=== PATIENT | male | born 1955 | race Caucasian/White ===

== ENCOUNTER 2019-12-06 18:01 | Inpatient (IN) | payer MEDICARE ==
[~2019-12-06] VITALS: Ht 162.6 cm; Wt 50.5 kg
[~2019-12-06 18:01] MED LIST: CALC-190 PO; PHEN100C23 PO
[2019-12-06 18:36] LABS: BASOPHILS % (AUTO) 0.3 % (0.0-5.0); EOSINOPHILS % (AUTO) 5.4 % (0.0-8.0); HEMATOCRIT 42.3 % (42-54); LYMPHOCYTES % (AUTO) 32.3 % (21.0-51.0); MEAN CORPUSCULAR HEMOGLOBIN 32.8 pg (27.0-33.0); MEAN CORPUSCULAR HGB CONC 34.3 g/dL (32.0-36.0); MEAN CORPUSCULAR VOLUME 95.7 fL (79-99); MONOCYTES % (AUTO) 11.2 % (3.0-13.0); NEUTROPHILS % (AUTO) 50.5 % (40.0-77.0); PLATELET COUNT (AUTO) 165 K/uL (130-400); RED BLOOD CELL COUNT(AUTO) 4.42 MIL/uL (4.50-6.20); RED CELL DISTRIBUTION WIDTH 12.9 % (11.0-15.5); WHITE BLOOD COUNT (AUTO) 3.1 K/uL (4.8-10.8)
[2019-12-06 18:48] LABS: CREATININE 0.9 mg/dL (0.5-1.5); POTASSIUM 4.8 mmol/L (3.5-5.1)
[2019-12-06 18:52] LABS: BILIRUBIN,TOTAL 0.2 mg/dL (0.2-1.0); TOTAL PROTEIN, SERUM 7.3 g/dL (6.0-8.3)
[2019-12-07] MEDS: SODIUM CHLORIDE 0.9% 1000ML 1,000 ML IV SCH ×2 (00:17→10:17)
[2019-12-07] MEDS ORDERED: NITROGLYCERIN 0.4 MG SL TAB SL PRN (00:30)
[2019-12-07] MEDS ORDERED: SODIUM CHLORIDE 0.9% 500ML 500 ML IV ONE ×2 (00:30→02:16)
[2019-12-07] MEDS ORDERED: ONDANSETRON HCL 4 MG/2 ML VIAL IV PRN (00:30)
[2019-12-07] MEDS ORDERED: ACETAMINOPHEN 325 MG TAB PO PRN ×2 (00:30)
[2019-12-07] MEDS ORDERED: DIPHENHYDRAMINE HCL 25 MG CAPSULE PO PRN (00:30)
[2019-12-07] MEDS ORDERED: SODIUM CHLORIDE 0.9% 500ML 500 ML IV SCH (01:30)
[2019-12-07] MEDS ORDERED: AMPICILLIN SODIUM/SULBACTAM NA 1.5GM VIAL ONE ×3 (02:10→19:18)
[2019-12-07 03:57] LABS: CREATINE KINASE, TOTAL 238 U/L (21-232); LACTATE DEHYDROGENASE 314 U/L (81-234); MYOGLOBIN 103 ng/mL (10-92); TRIGLYCERIDES 27 mg/dL (30-200); TROPONIN I < 0.04 ng/mL (0.00-0.06)
[2019-12-07 08:09] LABS: HEMATOCRIT 46.1 % (42-54); MEAN CORPUSCULAR HEMOGLOBIN 33.2 pg (27.0-33.0); MEAN CORPUSCULAR HGB CONC 34.5 g/dL (32.0-36.0); MEAN CORPUSCULAR VOLUME 96.2 fL (79-99); PLATELET COUNT (AUTO) 142 K/uL (130-400); RED BLOOD CELL COUNT(AUTO) 4.79 MIL/uL (4.50-6.20); RED CELL DISTRIBUTION WIDTH 12.9 % (11.0-15.5); WHITE BLOOD COUNT (AUTO) 1.9 K/uL (4.8-10.8)
[2019-12-07] MEDS: UNASYN 1.5GM+NS 100ML 100 ML IV SCH ×2 (08:15→14:15)
[2019-12-07 08:35] LABS: ALANINE AMINOTRANSFERASE 32 U/L (12-78); ALBUMIN 3.6 g/dL (3.5-5.0); ASPARTATE AMINOTRANSFERASE 24 U/L (10-37); BILIRUBIN,TOTAL 0.5 mg/dL (0.2-1.0); CARBON DIOXIDE 31 mmol/L (21-32); CHLORIDE 96 mmol/L (101-111); CREATINE KINASE, TOTAL 177 U/L (21-232); CREATININE 0.8 mg/dL (0.5-1.5); GLOMERULAR FILTR. RATE CALC 103 mL/min (>60); GLUCOSE,RANDOM 122 mg/dL (70-105); MYOGLOBIN 90 ng/mL (10-92); POTASSIUM 4.9 mmol/L (3.5-5.1); SODIUM SERUM 131 mmol/L (136-145); TOTAL PROTEIN, SERUM 6.9 g/dL (6.0-8.3); TROPONIN I < 0.04 ng/mL (0.00-0.06); UREA NITROGEN, BLOOD 20 mg/dL (7-18)
[2019-12-07] MEDS: FAMOTIDINE/PF 20 MG/2 ML VIAL IV SCH (09:00)
[2019-12-07] MEDS: ENOXAPARIN SODIUM 30 MG/0.3 ML SQ SCH (09:00)
[2019-12-07 09:04] LABS: BAND NEUTROPHILS % (MANUAL) 32 % (0-2); LYMPHOCYTES % (MANUAL) 4 % (22-44); MONOCYTES % (MANUAL) 8 % (2-9); REACTIVE LYMPHOCYTES 8 % (0-0); SEGMENTED NEUTROPHILS % 48 % (40-70)
[2019-12-07 09:05] LABS: PLATELET MORPHOLOGY COMMENT ADEQUATE
[2019-12-07] MEDS ORDERED: SODIUM CHLORIDE 0.9% 50 ML IV ONE (09:45)
[2019-12-07] MEDS ORDERED: FAMOTIDINE/PF 20 MG/2 ML VIAL IV ONE ×2 (11:23→22:20)
--- NOTE | 2019-12-07 14:00 | NUR ---
DYSPHAGIA EVAL COMPLETED. NPO PENDING MBSS TO RULE OUT SILENT ASPIRATION. Pt PRESENTS WITH MILD OROPHARYNGEAL DYSPHAGIA. NO OVERT S/S OF ASPIRATION OF COUGH OR THROAT CLEARS WERE PRESENT AT BEDSIDE WITH THIN LIQUIDS VIA SPOON. Addendum: 12/07/[address] [facility] Amended: Links added.
--- NOTE | 2019-12-07 14:10 | NUR ---
medications document not given due to charted in er bere [facility]ied[facility]
[2019-12-07] MEDS ORDERED: SODIUM CHLORIDE 0.9% 1000ML 1,000 ML IV ONE (14:32)
--- NOTE | 2019-12-07 17:52 | NUR ---
INITIAL SW unable to reach emergency contact noted on demographic sheet - Dennise Castro, . As per medical record, patient lives in a skilled nursing - [facility] in [place]. PCP is Dr. Monico Saha. DCP is back to skilled nursing. Addendum: 12/07/19 at 1755 by ROCKY RUIZ SS Amended: Links added.
[2019-12-07] MEDS ORDERED: PHENYTOIN SODIUM 50MG/ML 2ML 0 MG in SODIUM CHLORIDE 0.9% 50 ML IV SCH (18:45)
[2019-12-07] MEDS ORDERED: PHENYTOIN SODIUM 50 MG/ML 2ML VIAL IV ONE (22:20)
[2019-12-08] MEDS ORDERED: SODIUM CHLORIDE 0.9% 50 ML IV ONE (05:04)
[2019-12-08] MEDS ORDERED: AMPICILLIN SODIUM/SULBACTAM NA 1.5GM VIAL ONE ×2 (05:04→19:47)
[2019-12-08] MEDS ORDERED: ENOXAPARIN SODIUM 30 MG/0.3 ML SQ ONE (09:50)
[2019-12-08] MEDS ORDERED: FAMOTIDINE/PF 20 MG/2 ML VIAL IV ONE ×2 (09:50→21:18)
[2019-12-08 14:05] LABS: HEMATOCRIT 44.9 % (42-54); MEAN CORPUSCULAR HGB CONC 34.1 g/dL (32.0-36.0); PLATELET COUNT (AUTO) 148 K/uL (130-400); RED BLOOD CELL COUNT(AUTO) 4.63 MIL/uL (4.50-6.20); RED CELL DISTRIBUTION WIDTH 13.7 % (11.0-15.5); WHITE BLOOD COUNT (AUTO) 6.3 K/uL (4.8-10.8)
[2019-12-08 14:09] LABS: CREATININE 0.9 mg/dL (0.5-1.5)
[2019-12-08 14:49] LABS: BAND NEUTROPHILS % (MANUAL) 3 % (0-2); LYMPHOCYTES % (MANUAL) 5 % (22-44); MONOCYTES % (MANUAL) 12 % (2-9); MYELOCYTES % 3 % (0-0); SEGMENTED NEUTROPHILS % 77 % (40-70)
[2019-12-08 14:50] LABS: MAN.DIFF COMMENT-IMPRESSION MANUAL DIFFERENTIAL
[2019-12-08] MEDS ORDERED: SODIUM CHLORIDE 0.9% 100 ML IV ONE (19:48)
[2019-12-09] MEDS ORDERED: AMPICILLIN SODIUM/SULBACTAM NA 1.5GM VIAL ONE ×3 (04:09→14:37)
[2019-12-09] MEDS ORDERED: SODIUM CHLORIDE 0.9% 100 ML IV ONE (04:10)
[2019-12-09 05:34] LABS: BASOPHILS % (AUTO) 0.3 % (0.0-5.0); EOSINOPHILS % (AUTO) 0.3 % (0.0-8.0); HEMATOCRIT 43.5 % (42-54); LYMPHOCYTES % (AUTO) 8.1 % (21.0-51.0); MEAN CORPUSCULAR HEMOGLOBIN 32.7 pg (27.0-33.0); MEAN CORPUSCULAR HGB CONC 33.8 g/dL (32.0-36.0); MEAN CORPUSCULAR VOLUME 96.7 fL (79-99); NEUTROPHILS % (AUTO) 84.7 % (40.0-77.0); PLATELET COUNT (AUTO) 144 K/uL (130-400); RED CELL DISTRIBUTION WIDTH 13.4 % (11.0-15.5); WHITE BLOOD COUNT (AUTO) 6.2 K/uL (4.8-10.8)
[2019-12-09 05:42] LABS: CREATININE 0.7 mg/dL (0.5-1.5); POTASSIUM 4.3 mmol/L (3.5-5.1)
[2019-12-09 05:45] LABS: PHENYTOIN (DILANTIN) 20.8 mcg/mL (10.0-20.0)
[2019-12-09] MEDS: UNASYN 1.5GM+NS 100ML 100 ML IV SCH ×3 (08:15→22:20)
[2019-12-09] MEDS: ENOXAPARIN SODIUM 30 MG/0.3 ML SQ SCH (09:00)
[2019-12-09] MEDS: FAMOTIDINE/PF 20 MG/2 ML VIAL IV SCH ×2 (09:00→22:23)
[2019-12-09] MEDS ORDERED: SODIUM CHLORIDE 0.9% 50 ML IV ONE ×2 (09:44→14:38)
[2019-12-09] MEDS ORDERED: ENOXAPARIN SODIUM 30 MG/0.3 ML SQ ONE (09:48)
[2019-12-09] MEDS ORDERED: FAMOTIDINE/PF 20 MG/2 ML VIAL IV ONE (09:49)
[2019-12-09] MEDS: PHENYTOIN SODIUM 50 MG/ML 2ML VIAL IV SCH ×2 (12:00→20:00)
[2019-12-09] MEDS: SODIUM CHLORIDE 0.9% 1000ML 1,000 ML IV SCH ×2 (12:32→22:17)
--- NOTE | 2019-12-09 13:41 | NUR ---
CALL TO [facility]- SPOKE TO GETACHEW PET GROOMER, ADVISED HER PATIENT MAY NEED SNF PLACEMENT ON DISCHARGE ON THIS ADMISSION - ASPIRATION PNEUMONIA - POSS NEED FOR ABX GET[facility]W STATES THAT SELENA LIANG WOULD CALL BACK. [facility] PHONE NUMBER UPDATED ON FACE SHEET, FAXED TEXT TO MD GRACE RE PLACEMENT
--- NOTE | 2019-12-09 14:59 | NUR ---
MBSS COMPLETED. +S/S OF ASPIRATION WITH THIN, HONEY AND MIXED TEXTURES. RECOMMEND PUREED, PUDDING-THICK LIQUIDS; PILLS CRUSHED. ASSISTANT FITNESS MANAGER COORDINATED CARE WITH NURSE Ariel GARCIA WITH ID. ASSISTANT FITNESS MANAGER WILL CONTINUE TO FOLLOW Pt. Addendum: 12/09/19 at 1501 by ROSE MARY MOREIRA, [facility] [address] Amended: Links added.
--- NOTE | 2019-12-09 15:01 | NUR ---
REC'D CALL FROM SELENA AT [facility] THAT THEY WOULD LIKE DR. Lawrence TO SEE PATIENT WHILE HERE. OBTAINED ORDER FROM BRENT CHAN AND ENTERED. WILL AWAIT RECOMMENDATIONS. WILL FILE PEDRO FOR RETAMA
--- NOTE | 2019-12-09 16:15 | NUR ---
DISCHARGE PLANNING CHART REVIEW FOR PREVIOUS FUNCTION, PENDING CALL BACK TO [facility]- [facility]NA OR [facility] FOR MORE INFORMATION. PATIENT LIVES AT PRISON[facility]EDUCARE. THIS CHARTS MD NOTES STATE NOT VERY VERBAL, BUT APPEARS TO BE ABLE TO RESPOND TO YES AND NO QUESTIONS, PENDING ASSESSMENT BY DR. Lawrence FOR POSS IV ABX, FOR LARGE ASPIRATION PNEUMONIA ON ADMISSION IF NEEDS IV, POSSIBLE REFERRAL TO SNF, IF NOT, SPEECH THERAPY CAN POSSIBLY BE ARRANGED THROUGH PRISON / HOME HEALTH. CM TO FOLLOW FOR MD RECOMMENDATIONS. PENDING COVID RESULTS. PATIENT IN ER, CM UNABLE TO INTERVIEW.
[2019-12-09] MEDS ORDERED: SODIUM CHLORIDE 0.9% 1000ML 1,000 ML IV ONE (18:05)
[2019-12-09 20:20] VITALS: BP 146/76
--- NOTE | 2019-12-09 22:39 | NUR ---
Had paged Clinton CHAN, via answering service, answered back within a few minutes. Informed her of patient's Dilantin level this morning at 20.8 elevated, noticed that the dose for 12 noon was not administered. Sangeeta CHAN asked if the dose had not been adjusted informed her no. Orders received to hold the dose for tonight and in the morning. Informed her patient very irritable, and aggressive with staff, when ever something has to be done for him, like changing. Orders received to just keep an eye on him, if he is not trying to get out of bed. No new orders, if he does try to get out of bed to place on a one to one sitter. Clinton Browning called back again within a few seconds and stated only to hold the Dilantin dose for tonight, lab of Dilantin ordered for the morning, as soon as results out we would see if dose would be administered.
[2019-12-09 23:43] VITALS: BP 95/59
[2019-12-10 03:15] VITALS: BP 118/68
[2019-12-10] MEDS: UNASYN 1.5GM+NS 100ML 100 ML IV SCH (03:59)
[2019-12-10 05:37] LABS: BASOPHILS % (AUTO) 0.3 % (0.0-5.0); EOSINOPHILS % (AUTO) 1.7 % (0.0-8.0); HEMATOCRIT 40.5 % (42-54); LYMPHOCYTES % (AUTO) 8.7 % (21.0-51.0); MEAN CORPUSCULAR HEMOGLOBIN 33.3 pg (27.0-33.0); MEAN CORPUSCULAR HGB CONC 34.6 g/dL (32.0-36.0); MEAN CORPUSCULAR VOLUME 96.4 fL (79-99); MONOCYTES % (AUTO) 8.5 % (3.0-13.0); NEUTROPHILS % (AUTO) 80.3 % (40.0-77.0); PLATELET COUNT (AUTO) 150 K/uL (130-400); RED CELL DISTRIBUTION WIDTH 13.2 % (11.0-15.5); WHITE BLOOD COUNT (AUTO) 6.4 K/uL (4.8-10.8)
[2019-12-10 06:11] LABS: ALBUMIN 2.7 g/dL (3.5-5.0); BILIRUBIN,TOTAL 0.4 mg/dL (0.2-1.0); CREATININE 0.8 mg/dL (0.5-1.5); POTASSIUM 4.9 mmol/L (3.5-5.1); TOTAL PROTEIN, SERUM 6.3 g/dL (6.0-8.3)
[2019-12-10] MEDS: PHENYTOIN SODIUM 50 MG/ML 2ML VIAL IV SCH (06:20)
[2019-12-10 08:00] VITALS: BP 161/71
[2019-12-10] MEDS ORDERED: LEVOFLOXACIN 250 MG/D5W 50ML 50 ML IV SCH (09:00)
[2019-12-10] MEDS: ENOXAPARIN SODIUM 30 MG/0.3 ML SQ SCH (09:30)
[2019-12-10] MEDS: FAMOTIDINE/PF 20 MG/2 ML VIAL IV SCH (09:31)
[2019-12-10 11:35] VITALS: BP 127/64
[2019-12-10] MEDS ORDERED: LEVO500T89 PO (13:24)
--- NOTE | 2019-12-10 13:29 | NUR ---
FOLLOW UP COMPLETED. Pt IN BED AT THE TIME OF THE VISIT. Pt WITH INTELLECTUAL DISABILITY, COMPREHENSION VARIES. MATERIAL DAMAGE ADJUSTER ATTEMPTED TRIALS OF PUDDING-THICK LIQUIDS, REFUSED AT THIS TIME. STUDENT COUNSELLOR REPORTS Pt ATE ALL HIS BREAKFAST. BREAKFAST WAS AT LEVEL OF PUREED, PUDDING-THICK LIQUIDS WITH NO OVERT S/S OF ASPIRATION. MATERIAL DAMAGE ADJUSTER DEMONSTRATED HOW TO REACH PUDDING-THICK LIQUIDS. MATERIAL DAMAGE ADJUSTER COORDINATED CARE WITH NURSE CATIE. RECOMMEND CONTINUED PUREED, PUDDING-THICK LIQUIDS; PILLS CRUSHED WITH APPLESAUCE. MATERIAL DAMAGE ADJUSTER WILL CONTINUE TO FOLLOW Pt. Addendum: 12/10/19 at 1338 by ROSE MARY MOREIRA [facility] Amended: Links added.
[2019-12-10] MEDS ORDERED: PHENYTOIN SODIUM 100 MG ERCAP PO SCH (14:00)
--- NOTE | 2019-12-10 14:07 | NUR ---
CM NOTE/DCP HH PER BRENT GEOSPATIAL ANALYST, PATIENT TO RETURN TO [facility] WITH PO ANTIBIOTICS AND HH WITH SPEECH THERAPY. SELENA AT [facility] MADE AWARE, CLINICAL PACKET FAXED AND RECEIVED. SELENA WILL FOLLOW UP WITH DR. JEFFREY SWEENEY FOR HH WITH ST REFERRAL. PRIMARY NURSE, CATIE LIANG, MADE AWARE TO CALL REPORT TO [facility] AND CUT OFF TIME FOR BRIM STIFFENER IS 4:30PM.
--- NOTE | 2019-12-10 14:39 | NUR ---
RD NOTIFICATION Pt admitted for possible aspiration. Pt evaluated by Judson MANCIA, Pudding Thick liquids recommended. Pt tolerating diet order. Pt with low BMI for age. LBM 12/09/19. Recommend continue recommended diet order Recommend Pudding with lunch and dinner RD to continue to monitor. Please notify as additional nutrition concerns arise. Thank you. Addendum: 12/10/19 at [address] Amended: Links added.
--- NOTE | 2019-12-10 16:15 | NUR ---
DISCHARGE PATIENT GIVEN DISCHARGE INSTRUCTIONS VIA TEACH BACK. 20G PIV TO RA DISCONTINUED, TIP INTACT. TELE REMOVED AND RETURNED TO TELEMETRY. PATIENT TO FOLLOW UP WITH DR. HAN FOR HOME HEALTH AND SPEECH THERAPY. E-RX SENT FOR LEVOFLOXACIN 500MG 1 TAB PO QD X 7 DAYS. CONTINUE HOME MEDICATIONS. REPORT GIVEN TO SELENA BRADFORD RN AT [facility]. TRANSPORT AWAITING FOR PATIENT TO BE WHEELED TO [facility] FOR DISCHARGE BY MARK KAMINSKI. PATIENT STABLE AT THIS TIME.
[2019-12-11] MEDS ORDERED: LEVOFLOXACIN 500 MG TABLET PO SCH (09:00)
== END 2019-12-10 16:15 | disposition home or self-care (01) | DRG 178 ==
LOC: EDH 18:01 → EDHIP 23:50 → 3DH 12-09 20:49
PROVIDERS: ADMIT Internal Medicine; ATTEND Internal Medicine
DX: J69.0 Pneumonitis due to inhalation of food and vomit (principal); E87.1 Hypo-osmolality and hyponatremia; T17.928A Food in respiratory tract, part unspecified causing other injury, initial encounter; G40.909 Epilepsy, unspecified, not intractable, without status epilepticus; B96.1 Klebsiella pneumoniae [K. pneumoniae] as the cause of diseases classified elsewhere; F79 Unspecified intellectual disabilities; R13.12 Dysphagia, oropharyngeal phase; K21.9 Gastro-esophageal reflux disease without esophagitis; R53.81 Other malaise; R62.50 Unspecified lack of expected normal physiological development in childhood; Z20.828 Contact with and (suspected) exposure to other viral communicable diseases; Y93.89 Activity, other specified; Y92.89 Other specified places as the place of occurrence of the external cause; Y99.8 Other external cause status
CPT/HCPCS: 36415; 71045; 71250; 74230; 80048; 80053; 80185; 82550; 82728; 83605; 83615; 83735; 83874; 83880; 84145; 84478; 84484; 85025; 85378; 85384; 86140; 87040; 87071; 87077; 87186; 87205; 87804; 92610; 92611; 93005; G0378; J0295; J1165; J1650; J1956; J3490; J7030; J7040; U0003

== ENCOUNTER 2023-09-27 04:18 | Emergency (ER) | payer MEDICARE ==
[~2023-09-27 04:18] MED LIST changes: +CALC-1220 PO; -CALC-190 PO; +ESCI20TA38 PO; +LEVO-70 PO; +MELO-106 PO; +MULT-1301 PO; +OXCA600T18 PO; -PHEN100C23 PO; +PHEN100O5 PO; +RISP0.5T80 PO; +TELM80TA10 PO
[2023-09-27 04:40] LABS: BILIRUBIN,URINE NEGATIVE (NEGATIVE); GLUCOSE, URINE (UA) NEGATIVE (NEGATIVE); KETONES,URINE NEGATIVE (NEGATIVE); LEUKOCYTE ESTERASE ,URINE LARGE Leu/uL (NEGATIVE); NITRATE,URINE POSITIVE (NEGATIVE); OCCULT BLOOD,URINE SMALL (NEGATIVE); PROTEIN,URINE TRACE mg/dL (NEGATIVE)
[2023-09-27 04:48] LABS: BASOPHILS # (AUTO) 0.04 K/uL (0.00-0.20); BASOPHILS % (AUTO) 0.6 % (0.0-5.0); EOSINOPHILS # (AUTO) 0.27 K/uL (0.00-0.70); EOSINOPHILS % (AUTO) 4.3 % (0.0-8.0); HEMATOCRIT 38.3 % (42-54); IMMATURE GRANULOCYTE ABSOLUTE 0.06 K/uL (0-1); LYMPHOCYTES # (AUTO) 1.2 K/uL (1.0-4.8); LYMPHOCYTES % (AUTO) 19.7 % (21.0-51.0); MEAN CORPUSCULAR HGB CONC 33.7 g/dL (32.0-36.0); MONOCYTES # (AUTO) 0.5 K/uL (0.1-1.0); MONOCYTES % (AUTO) 7.6 % (3.0-13.0); NEUTROPHILS # (AUTO) 4.2 K/uL (1.8-7.7); NEUTROPHILS % (AUTO) 66.8 % (40.0-77.0); PLATELET COUNT (AUTO) 314 K/uL (130-400); RED BLOOD CELL COUNT(AUTO) 3.91 MIL/uL (4.50-6.20); RED CELL DISTRIBUTION WIDTH 12.8 % (11.0-15.5); WHITE BLOOD COUNT (AUTO) 6.3 K/uL (4.8-10.8)
[2023-09-27 04:48] LABS: ADD UA MICROSCOPIC YES; APPEARANCE,URINE CLOUDY (CLEAR); COLOR,URINE LIGHT-YELLOW (YELLOW)
[2023-09-27 04:59] LABS: CREATININE 0.7 mg/dL (0.5-1.3); POTASSIUM 4.8 mmol/L (3.5-5.1)
[2023-09-27 05:01] LABS: BACTERIA,URINE Many /HPF (None Seen); SQUAMOUS EPITHELIAL CELL,UR Rare /HPF (0-2)
[2023-09-27 05:14] LABS: BILIRUBIN,TOTAL 0.3 mg/dL (0.2-1.0); TOTAL PROTEIN, SERUM 7.3 g/dL (6.0-8.3)
[2023-09-27 06:12] VITALS: BP 137/73; PULSE 78; RESP 18; O2SAT 97
== END 2023-09-27 06:39 ==
LOC: EDH 04:18
DX: T83.9XXA Unspecified complication of genitourinary prosthetic device, implant and graft, initial encounter (principal); E11.9 Type 2 diabetes mellitus without complications; K21.9 Gastro-esophageal reflux disease without esophagitis; Z74.01 Bed confinement status; Z79.1 Long term (current) use of non-steroidal anti-inflammatories (NSAID); Z79.899 Other long term (current) drug therapy; Y84.9 Medical procedure, unspecified as the cause of abnormal reaction of the patient, or of later complication, without mention of misadventure at the time of the procedure; Y92.89 Other specified places as the place of occurrence of the external cause
CPT/HCPCS: 36415; 51702; 71045; 80053; 81001; 83605; 85025; 87040; 87077; 87088; 87186